=== PATIENT | female | born 1995 | race Caucasian/White ===

== ENCOUNTER 2016-02-16 13:41 | Emergency (ER) | payer OTHER ==
[~2016-02-16] VITALS: Ht 160 cm; Wt 103.9 kg
[2016-02-16 13:48] VITALS: TEMP 36.7; Ht 160 cm; Wt 103.9 kg
[2016-02-16] MEDS ORDERED: BUSP15TA70 PO (14:48)
[2016-02-16] MEDS ORDERED: FLUO40CA8 PO (14:48)
[2016-02-16] MEDS ORDERED: BCPILLS PO (14:48)
[2016-02-16] MEDS ORDERED: ONDANSETRON INJ 2 MG/ML 2 ML VIAL IV STA (14:56)
[2016-02-16 15:18] LABS: BASO % 0.3 %; BASO ABS # 0.03 K/uL (0-0.2); COMPLETE YES; EOS % 1.1 %; HEMATOCRIT 43.3 % (37-47); IG% 0.2 %; LYMPH % 28.2 %; LYMPH ABS # 2.52 K/uL (1.2-3.4); MEAN CELL VOLUME 84.7 fL (80-100); MEAN CORPUSCULAR HEMOGLOBIN 29.9 pg (25-34); MEAN CORPUSCULAR HGB CONC 35.3 g/dl (32-36); MEAN PLATELET VOLUME 11.6 fL (7.4-10.4); MONO % 6.5 %; NEUT % 63.7 %; PLATELET COUNT 244 K/uL (130-400); RED BLOOD COUNT 5.11 M/uL (4.2-5.4); WHITE BLOOD COUNT 8.93 K/uL (4.8-10.8)
[2016-02-16 15:32] LABS: BUN/CREATININE RATIO 3.9 (10-20); CALCIUM 9.3 mg/dl (8.5-10.1); CREATININE 0.93 mg/dl (0.60-1.20); POTASSIUM 3.5 mmol/L (3.5-5.1)
[2016-02-16] MEDS ORDERED: SODIUM CHLORIDE 0.9% 1000ML 1,000 ML IV STA (16:02)
--- NOTE | 2016-02-16 16:12 | DIAGNOSTIC IMAGING REPORT ---
Right upper quadrant ultrasound GALLBLADDER-ABD LIMITED CLINICAL HISTORY: rug abd pain. Nausea. TECHNIQUE: Ultrasound COMPARISON STUDY: 04/10/2014 FINDINGS: Small polyp combined with a trace amount of sludge and or debris in the region of the gallbladder neck. Gallbladder wall is slightly prominent at 3.5 mm. No pericholecystic fluid. Bile duct 3 mm. Liver is uniform. Right kidney is negative for hydronephrosis. IMPRESSION: Small amount of sludge/debris in the region of the gallbladder neck. Slight thickening gallbladder wall. Normal caliber bile ducts. Electronically signed by: Chaitanya Martinez M.D. 02/16/2016 4:10 PM
[2016-02-16] MEDS ORDERED: OXYC1TAB3 PO (16:54)
--- NOTE | 2016-02-16 16:55 | Pre-Operative Consultation ---
History General Date of Service: Feb 16, 2016. Stated Complaint: abdominal pain and diarrhea HPI HPI: The patient is a 20 year old female being seen at the request of Dr. Panda for diarrhea and abdominal pain. She started about 2 wks ago with diarrhea. This would happen on a daily basis, more often after eating but also at times she was not eating. Up to over 10 stools of explosive nature daily. No relation to type of food eaten. Initially when this started, she had nausea and vomiting for a few days. About 1 wk ago, developed abdominal pain, constant, sharp, worse in mid abdomen and right side, up to 8/10 in intensity at times, no radiation to back or shoulder. In the past, she has been worked up for gallbladder disease but this has typically been normal. She has reflux disease also which feels worse recently. Pain currently 5/10. Decreased PO intake. She is here in the ER because things have just been going on too long. Initially went to urgent care but told they could not do any testing so sent here. Does not feel any worse today than she has felt in the last week. She is able to keep down PO intake. Historian: patient Procedure Urgency: Elective Risk Assessment Major Risk Factors: no known hx of decompensated CHF, no known hx of recent NH , no known hx of severe valvular disease, no known hx of unstable or severe angina Pre-Op Conditions: no known hx of COPD, no known hx of arrhythmia, no known hx of asthma, no known hx of cerebrovascular disease, no known hx of compensated CHF, no known hx of diabetes, no known hx of elevated BNP, no known hx of family h/o anesthesia problems, no known hx of h/o anesthesia problems, no known hx of h/o orthostatic intolerance, no known hx of history of NH, no known hx of implanted defibrillator, no known hx of liver disease, no known hx of other, no known hx of pacemaker, no known hx of problems w/ neck or jaw, no known hx of recent PCI, no known hx of renal insufficiency, no known hx of seizure disorder, no known hx of stable angina, no known hx of thyroid disease, no known hx of valvular heart disease Daily beta sidney use?: No Medical & Surgical History Past Medical History: no pertinent history Past Surgical History: no surgical history Allergies Allergies: Coded Allergies: Penicillins (Verified Allergy, Unknown, ?, 02/16/16) Medications Current Inpatient Medications Current Inpatient Medications Medications (Trade) Dose Ordered Sig/Yadi Route Start Time Stop Time Status Last Admin Dose Admin Sodium Chloride (Nss 1000ml) 1,000 ml @ 999 mls/hr Q1H1M STAT IV 02/16/16 16:02 02/16/16 17:02 02/16/16 16:11 999 MLS/HR Review of Systems Review of Systems Constitutional: denies no symptoms reported Eyes: denies: no symptoms ENT: denies: no symptoms reported Cardiovascular: denies: no symptoms reported Respiratory: denies: no symptoms reported Gastrointestinal: see HPI Genitourinary - Female: denies: no symptoms Musculoskeletal: no symptoms reported Integumentary: no symptoms reported Neurologic: reports: no symptoms Psychiatric: reports: no symptoms Endocrine: no symptoms Hematologic / Lymphatic: no symptoms Allergic / Immunologic: no symptoms Physical Exam Physical Exam General Appearance: + WD/WN, No distress Ears, Nose, Throat: + normal ENT inspection Neck: No abnormal inspection, No tracheal deviation Respiratory: No abnormal breath sounds, No accessory muscle use, No chest tenderness Cardiovascular: No abnormal peripheral pulse, No edema Abdomen: No abnormal bowel sounds, No distension, No hernia, No tenderness Extremities: No edema Neurologic/Psychiatric: No abnormal general medical practitioner II-XII, No abnormal gait Skin Characteristics: No abnormal color, No abnormal temperature Diagnostics Labs Labs Results Past 24 Hours Test 02/16/16 14:50 Range/Units White Blood Count 8.93 4.8-10.8 K/uL Red Blood Count 5.11 4.2-5.4 M/uL Hemoglobin 15.3 12.0-16.0 g/dL Hematocrit 43.3 37-47 % Mean Corpuscular Volume 84.7 80-100 fL Mean Corpuscular Hemoglobin 29.9 25-34 pg Mean Corpuscular Hemoglobin Concent 35.3 32-36 g/dl Platelet Count 244 130-400 K/uL Mean Platelet Volume 11.6 7.4-10.4 fL Neutrophils (%) (Auto) 63.7 % Lymphocytes (%) (Auto) 28.2 % Monocytes (%) (Auto) 6.5 % Eosinophils (%) (Auto) 1.1 % Basophils (%) (Auto) 0.3 % Neutrophils # (Auto) 5.68 1.4-6.5 K/uL Lymphocytes # (Auto) 2.52 1.2-3.4 K/uL Monocytes # (Auto) 0.58 0.11-0.59 K/uL Eosinophils # (Auto) 0.10 0-0.5 K/uL Basophils # (Auto) 0.03 0-0.2 K/uL RDW Standard Deviation 41.1 36.4-46.3 fL RDW Coefficient of Variation 13.3 11.5-14.5 % Immature Granulocyte % (Auto) 0.2 % Immature Granulocyte # (Auto) 0.02 0.00-0.02 K/uL Sodium Level 141 136-145 mmol/L Potassium Level 3.5 3.5-5.1 mmol/L Chloride Level 108 98-107 mmol/L Carbon Dioxide Level 20 21-32 mmol/L Anion Gap 13.0 3-11 mmol/L Blood Urea Nitrogen 4 7-18 mg/dl Creatinine 0.93 0.60-1.20 mg/dl Est Creatinine Clear Calc Drug Dose 111.2 ml/min Estimated GFR () 102.5 Estimated GFR (Non- 88.5 BUN/Creatinine Ratio 3.9 10-20 Random Glucose 82 70-99 mg/dl Calcium Level 9.3 8.5-10.1 mg/dl Total Bilirubin 0.5 0.2-1 mg/dl Direct Bilirubin 0.2 0-0.2 mg/dl Aspartate Amino Transf (AST/SGOT) 61 15-37 U/L Alanine Aminotransferase (ALT/SGPT) 104 12-78 U/L Alkaline Phosphatase 100 45-117 U/L Total Protein 8.5 6.4-8.2 gm/dl Albumin 4.0 3.4-5.0 gm/dl Lipase 185 73-393 U/L Microbiology Results 02/16/16 Shiga Toxin Test, Received Pending 02/16/16 Stool Culture, Received Pending 02/16/16 C.difficile Toxin B Gene (PCR) - Final, Complete No C. difficile toxin B gene detected Lab Interpretation Lab Interpretation: labs were reviewed Diagnostic Radiology Diagnostic Radiology RUQ US with possible minimal sludge in gallbladder neck. Impression Assessment and Plan Assessment and Plan 20 yr old woman with diarrhea, abdominal pain. Does not need admission to hospital as this should be able to be evaluated as an oupt. I would recommend a colonoscopy first to rule out colitis as the predominance of diarrhea in her symptoms is unusual for gallbladder disease. If this is negative, she could be considered for an elective lap cholecystectomy but does carry a significant chance (up to 30%) of recurrent symptoms or worsening of her diarrhea from the surgery due to the minimal gallbladder findings. This was discussed with her - she feels OK to be discharged with outpt f/u scheduled.
[2016-02-16 17:10] VITALS: BP 138/77; PULSE 97; O2SAT 100
[2016-02-16 17:43] LABS: URINE APPEARANCE CLOUDY (CLEAR); URINE BILIRUBIN NEG (NEG); URINE COLOR DK YELLOW; URINE EPITHELIAL CELL AUTO >30 /lpf (0-5); URINE NITRITE NEG (NEG); URINE SPECIFIC GRAVITY 1.013 (1.000-1.030); UROBILINOGEN NEG (NEG); ZZUR CULT IF INDIC CLEAN CATCH YES
[2016-02-16 17:48] LABS: MANUAL MICROSCOPIC REQUIRED? NO; REVIEW REQ? YES
[2016-02-16 17:56] LABS: URINE PATH CASTS 1-5 GRANULAR CASTS /lpf (0)
--- NOTE | 2016-02-16 18:01 | EMERGENCY ROOM VISIT NOTE ---
History Report prepared by Rosanna: Sonya Jackson Under the Supervision of: Dr. Greg Panda D.O. First contact with patient: 14:37 Chief Complaint: ABDOMINAL PAIN Stated Complaint: DIARRHEA X 2 WKS, ABD. PAIN, RT SIDE/ALL OVER Nursing Triage Summary: Triage note: Pt reports she has had diarrhea x 2 weeks and abd pain x 1 week. Pt reports nausea. History of Present Illness The patient is a 20 year old female who presents to the Emergency Room with complaints of constant right upper quadrant abdominal pain that started one week ago. The pain is worse with eating and movement but relieved with lying down. She is experiencing nausea in addition to the pain but she denies vomiting. The patient is also experiencing diarrhea that started two weeks ago. She experiences approximately 10 episodes of diarrhea a day. She denies hematochezia. The patient denies recent travel, drinking from streams, recent sick contacts, and recent contact with healthcare professionals. She denies pain or burning with urination along with abnormal vaginal bleeding or discharge. Her last normal menstrual period was one month ago and she denies any chance of . The patient denies any previous abdominal surgeries. No recent antibiotics. No fevers greater than 100.4. Source of History: patient Onset: one week ago Position: abdomen (RUQ) Timing: constant Modifying Factors (Worsening): eating, movement Modifying Factors (Relieving): other (lying down) Associated Symptoms: + diarrhea, + nausea, No hematochezia, No urinary symptoms Note: no abnormal vaginal bleeding or discharge Review of Systems See HPI for pertinent positives & negatives. A total of 10 systems reviewed and were otherwise negative. Past Medical & Surgical Surgical Problems: (1) No pertinent past surgical history Family History No pertinent family history Social History Marital Status: single Housing Status: lives with family Current/Historical Medications Scheduled Control Pills ( Control Pills), 1 TAB PO DAILY Buspirone Hcl (Buspar), Unknown Dose PO HS Fluoxetine (Prozac), 40 MG PO HS Scheduled PRN Oxycodone Immediate Rel Tab (Roxicodone Ir), 5 MG PO Q6H PRN for Pain Allergies Coded Allergies: Penicillins (Verified Allergy, Unknown, ?, 02/16/16) Physical Exam Vital Signs Date Time Temp Pulse Resp B/P Pulse Ox O2 Delivery O2 Flow Rate FiO2 02/16/16 17:10 97 16 138/77 100 02/16/16 15:25 93 16 111/69 98 Room Air 02/16/16 13:48 36.7 100 18 98/71 99 Room Air Physical Exam GENERAL: alert, sitting up in bed, well appearing, well nourished, no distress, non-toxic EYE EXAM: normal conjunctiva OROPHARYNX: no exudate, no erythema, lips, buccal mucosa, and tongue normal and mucous membranes are moist NECK: supple, no nuchal rigidity, no adenopathy, non-tender LUNGS: Clear to auscultation. Normal chest wall mechanics HEART: no murmurs, S1 normal and S2 normal ABDOMEN: abdomen soft, minimal tenderness in right upper quadrant, normo-active bowel sounds, no masses, no rebound or guarding. BACK: Back is symmetrical on inspection and there is no deformity, no midline tenderness, no CVA tenderness. SKIN: no rashes and no bruising UPPER EXTREMITIES: upper extremities are grossly normal. LOWER EXTREMITIES: No pitting edema. NEURO EXAM: Normal sensorium, cranial nerves II-XII grossly intact, normal speech, no gross weakness of arms, no gross weakness of legs. Medical Decision & Procedures ER Provider Diagnostic Interpretation: US results have been interpreted by the radiologist and reviewed by me. Right upper quadrant ultrasound GALLBLADDER-ABD LIMITED CLINICAL HISTORY: rug abd pain. Nausea. TECHNIQUE: Ultrasound COMPARISON STUDY: 04/10/2014 FINDINGS: Small polyp combined with a trace amount of sludge and or debris in the region of the gallbladder neck. Gallbladder wall is slightly prominent at 3.5 mm. No pericholecystic fluid. Bile duct 3 mm. Liver is uniform. Right kidney is negative for hydronephrosis. IMPRESSION: Small amount of sludge/debris in the region of the gallbladder neck. Slight thickening gallbladder wall. Normal caliber bile ducts. Electronically signed by: Chaitanya Martinez M.D. 02/16/2016 4:10 PM Laboratory Results 02/16/16 14:50 Red Blood Count 5.11, Mean Corpuscular Volume 84.7, Mean Corpuscular Hemoglobin 29.9, Mean Corpuscular Hemoglobin Concent 35.3, Mean Platelet Volume 11.6, Neutrophils (%) (Auto) 63.7, Lymphocytes (%) (Auto) 28.2, Monocytes (%) (Auto) 6.5, Eosinophils (%) (Auto) 1.1, Basophils (%) (Auto) 0.3, Neutrophils # (Auto) 5.68, Lymphocytes # (Auto) 2.52, Monocytes # (Auto) 0.58, Eosinophils # (Auto) 0.10, Basophils # (Auto) 0.03 02/16/16 14:50 Test 02/16/16 14:50 02/16/16 16:55 White Blood Count 8.93 K/uL (4.8-10.8) Red Blood Count 5.11 M/uL (4.2-5.4) Hemoglobin 15.3 g/dL (12.0-16.0) Hematocrit 43.3 % (37-47) Mean Corpuscular Volume 84.7 fL (80-100) Mean Corpuscular Hemoglobin 29.9 pg (25-34) Mean Corpuscular Hemoglobin Concent 35.3 g/dl (32-36) Platelet Count 244 K/uL (130-400) Mean Platelet Volume 11.6 fL (7.4-10.4) Neutrophils (%) (Auto) 63.7 % Lymphocytes (%) (Auto) 28.2 % Monocytes (%) (Auto) 6.5 % Eosinophils (%) (Auto) 1.1 % Basophils (%) (Auto) 0.3 % Neutrophils # (Auto) 5.68 K/uL (1.4-6.5) Lymphocytes # (Auto) 2.52 K/uL (1.2-3.4) Monocytes # (Auto) 0.58 K/uL (0.11-0.59) Eosinophils # (Auto) 0.10 K/uL (0-0.5) Basophils # (Auto) 0.03 K/uL (0-0.2) RDW Standard Deviation 41.1 fL (36.4-46.3) RDW Coefficient of Variation 13.3 % (11.5-14.5) Immature Granulocyte % (Auto) 0.2 % Immature Granulocyte # (Auto) 0.02 K/uL (0.00-0.02) Anion Gap 13.0 mmol/L (3-11) Est Creatinine Clear Calc Drug Dose 111.2 ml/min Estimated GFR () 102.5 Estimated GFR (Non- 88.5 BUN/Creatinine Ratio 3.9 (10-20) Calcium Level 9.3 mg/dl (8.5-10.1) Total Bilirubin 0.5 mg/dl (0.2-1) Direct Bilirubin 0.2 mg/dl (0-0.2) Aspartate Amino Transf (AST/SGOT) 61 U/L (15-37) Alanine Aminotransferase (ALT/SGPT) 104 U/L (12-78) Alkaline Phosphatase 100 U/L (45-117) Total Protein 8.5 gm/dl (6.4-8.2) Albumin 4.0 gm/dl (3.4-5.0) Lipase 185 U/L (73-393) Urine Color DK YELLOW Urine Appearance CLOUDY (CLEAR) Urine pH 6.0 (4.5-7.5) Urine Specific Roberts 1.013 (1.000-1.030) Urine Protein NEG (NEG) Urine Glucose (UA) NEG (NEG) Urine Ketones 1+ (NEG) Urine Occult Blood NEG (NEG) Urine Nitrite NEG (NEG) Urine Bilirubin NEG (NEG) Urine Urobilinogen NEG (NEG) Urine Leukocyte Esterase MODERATE (NEG) Urine WBC (Auto) >30 /hpf (0-5) Urine RBC (Auto) 5-10 /hpf (0-4) Urine Hyaline Casts (Auto) 5-10 /lpf (0-5) Urine Epithelial Cells (Auto) >30 /lpf (0-5) Urine Bacteria (Auto) 2+ (NEG) Urine Renal Epithelial Cells 0-5 /lpf (0-5) Urine Pathogenic Casts 1-5 GRANULAR CASTS /lpf (0) Urine Test NEG (NEG) Laboratory results per my review. Medications Administered Medications (Trade) Dose Ordered Sig/Yadi Route Start Time Stop Time Status Last Admin Dose Admin Ondansetron HCl 4 mg 4 mg NOW STAT IV 02/16/16 14:56 02/16/16 14:57 DC 02/16/16 15:23 4 MG Sodium Chloride (Nss 1000ml) 1,000 ml @ 999 mls/hr Q1H1M STAT IV 02/16/16 16:02 02/16/16 17:02 DC 02/16/16 16:11 999 MLS/HR ED Course ED COURSE: Vital signs were reviewed and showed tachycardia and hypotension. The patients medical record was reviewed The above diagnostic studies were performed and reviewed. ED treatments and interventions as stated above. 1438: The patient was evaluated in room C5. A complete history and physical examination was performed. 1456: Ordered Zofran 4 mg IV 1550: I went to reassess the patient but she was at ultrasound. 1602: Ordered Sodium Chloride 1000 ml @ 999 mls/hr IV 1625: I reassessed and updated the patient. 1626: I reviewed the patient's case with Dr. Penny - General Surgery. She recommends trying to obtain a HIDA scan for the patient. She is going to come in and evaluate the patient. 1628: I called over to [facility] to see if they can perform a HIDA scan today. They said that they could not do one today because everyone has left already. 1643: Dr. Penny evaluated the patient. She recommended having her follow-up as an outpatient. 1655: Upon reevaluation, the patient is doing well. I discussed my findings with the patient and she understands and agrees with the treatment plan. Based on the patients age, coexisting illnesses, exam and lab findings the decision to treat as an outpatient was made. The patient remained stable while under my care. The patient appeared well at the time of discharge. Medical Decision Differential diagnoses includes but is not limited to gastritis, peptic ulcer disease, GERD, gallbladder disease, pancreatitis, small bowel obstruction, acute coronary syndrome, pericarditis, ischemic bowel, irritable bowel disease, irritable bowel syndrome, appendicitis, diverticulitis, malignancy, hernia, urinary tract infection, torsion, /ectopic , perforation, trauma, infectious. Patient is a 20-year-old female who presents the ER for persistent diarrhea for the past 10 days. She has been going to the bathroom about 10 times a day. No antibiotics are association with healthcare providers. No recent travel. No drinking from stream. No blood in her stool. Abdominal exam is completely benign with exception of mild tenderness in the right upper quadrant which has also been present for the past 7 days. She has been working this up as an outpatient. It is worse with eating. No fevers. Labs show no significant leukocytosis or anemia. BMP shows a CO2 of 20 which I favor secondary to her persistent diarrhea. AST and ALTs slightly elevated at 61 and 104. Ultrasound shows slight gallbladder wall thickening and some sludge in the next the call bladder but normal ducts. UA was contaminated. Urine was negative. urine dip had plus ketones negative nitrates leukocytes and whites. Patient was evaluated by general surgery at bedside. I consulted them due to the thickening of the gallbladder wall along with sludge in the neck of the gallbladder and elevation in her LFTs. They recommended following up as an outpatient and they'll set up follow-up for GI as well. C. difficile was negative. Stool culture still pending. Discussed with Pt concerning signs and symptoms to watch out for. Pt was instructed to follow up with their PCP and discussed with the patient their option to return to the ED at anytime for persistent or worsening symptoms. The appropriate anticipatory guidance and out- patient management, including indications for return to the emergency department , were explained at length to the patient and understood. Consults Time Called: 1623 Consulting Physician: Dr. Penny - General Surgery Returned Call: [phone] I reviewed the patient's case with Dr. Zohaib Rene General Surgery. She recommends trying to obtain a HIDA scan for the patient. She is going to come in and evaluate the patient. Impression Primary Impression: RUQ abdominal pain Additional Impressions: Transaminitis, Diarrhea Scribe Attestation The scribe's documentation has been prepared under my direction and personally reviewed by me in its entirety. I confirm that the note above accurately reflects all work, treatment, procedures, and medical decision making performed by me. Departure Information Dispostion Home / Self-Care Prescriptions Oxycodone Immediate Rel Tab (ROXICODONE IR) 5 Mg Tab 5 MG PO Q6H Y for Pain, #10 TAB Prov: Greg Panda, DO 02/16/16 Referrals No Doctor, Assigned (PCP) Forms HOME CARE DOCUMENTATION FORM, IMPORTANT VISIT INFORMATION, My [facility] Patient Instructions A Signature Page, Gallstones Tx, Vomit Diarrhea Self Care Additional Instructions Please follow up with your primary care doctor with in the next 24 hours. Any worsening of your symptoms, please return to the ED immediately. This includes fevers greater than 100.4, worsening pain, persistent nausea vomiting, bloody stool, or any other concerning signs or symptoms from your standpoint. Please follow-up with general surgery within the next 48 hours. You were given medications during this visit that will inhibit your ability to drive, operate machinery and work. Please do NOT drive, operate machinery or work for the next 12hrs. You were also given a prescription for a narcotic/ OxyIR. While taking this medication you should also not drive, operate machinery and or work.
--- NOTE | 2016-02-18 18:38 | Pharmacy Progress Note ---
ED Pharmacist Culture FollowUp Date of Service: Feb 18, 2016. Called patient regarding urine culture. Patient confirmed that she still does not have any urinary symptoms. Counseled to see PCP if she develops any. No antibiotics required at this time. Case discussed with Dr. Panda.
== END 2016-02-16 17:11 | disposition home or self-care (01) ==
LOC: C.EDB 13:44 → C.EDC 17:11
DX: R10.11 Right upper quadrant pain (principal); R19.7 Diarrhea, unspecified; Z79.3 Long term (current) use of hormonal contraceptives; Z79.899 Other long term (current) drug therapy; R74.0 Nonspecific elevation of levels of transaminase and lactic acid dehydrogenase [LDH]

== ENCOUNTER 2016-03-10 10:37 | Emergency (ER) | payer OTHER ==
[~2016-03-10] VITALS: Ht 160 cm; Wt 103.1 kg
[~2016-03-10 10:37] MED LIST: BCPILLS PO; BUSP15TA70 PO; FLUO40CA8 PO; OXYC1TAB3 PO
[2016-03-10 10:53] VITALS: TEMP 36.8; Ht 160 cm; Wt 103.1 kg
--- NOTE | 2016-03-10 11:17 | EMERGENCY ROOM VISIT NOTE ---
History Report prepared by Rosanna: Natty Babb Under the Supervision of: Dr. Cuba Cole D.O. First contact with patient: 11:01 Chief Complaint: ABDOMINAL PAIN Stated Complaint: ABD. PAIN, V,N Nursing Triage Summary: Pt c/o right upper abdominal pain that started Sunday, n/v/d, pain now goes across upper abd from right to left. Pain also goes into upper left chest and shoulder. Hx of the same pain when seen here Feb 15. History of Present Illness The patient is a 20 year old female who presents to the Emergency Room with complaints of persistent right upper quadrant abdominal pain that began Sunday. She currently rates her discomfort as an 8/10 in severity. The patient states that a few weeks ago she was evaluated in the emergency department for similar pain. She states that she had an ultrasound done of her gallbladder and found to have sludge in her gallbladder. The patient notes that she was referred to Dr. Penny, General Surgery to discuss surgery options. She states that Dr. Penny let the decision up to her as to whether or not she would have her gallbladder removed. The patient states that Sunday she started with the abdominal pain, but notes that now it radiates from her right upper quadrant to her left upper quadrant and into her back. She additionally associates nausea, vomiting, and diarrhea, and states that the nausea is a new symptom as well. The patient states that she has had a pain in her left anterior shoulder pain, but denies any pain in her shoulder blades. The patient states that her last menstrual cycle was 1 week ago and states that she is on control and Prozac. She denies any previous abdominal surgeries. The patient states that her last food intake was last evening. Source of History: patient Onset: Sunday Position: abdomen (RUQ) Symptom Intensity: 8/10 Timing: other (persistent) Associated Symptoms: + diarrhea, + nausea, + vomiting Note: Associated Symptoms: left anterior shoulder pain Review of Systems See above for pertinent positives & negatives. A total of 10 systems reviewed and were otherwise negative. Past Medical & Surgical Surgical Problems: (1) No pertinent past surgical history Family History No pertinent family history Social History Smoking Status: Never Smoker Marital Status: single Housing Status: lives with family Occupation Status: student Current/Historical Medications Scheduled Control Pills ( Control Pills), 1 TAB PO DAILY Buspirone Hcl (Buspar), Unknown Dose PO HS Fluoxetine (Prozac), 40 MG PO HS Scheduled PRN Hydrocodon/Acetaminophen 5MG/300MG (Vicodin (5MG/300MG)), 1-2 TAB PO Q6H PRN for Pain Allergies Coded Allergies: Cetirizine (Unverified Allergy, Unknown, "OUT OF IT". , 03/10/16) Penicillins (Verified Allergy, Unknown, ?, 03/10/16) Physical Exam Vital Signs Date Time Temp Pulse Resp B/P Pulse Ox O2 Delivery O2 Flow Rate FiO2 03/10/16 15:26 87 16 116/67 96 Room Air 03/10/16 14:13 85 18 127/74 96 Room Air 03/10/16 13:22 89 03/10/16 12:18 87 16 114/68 96 Room Air 03/10/16 11:37 97 03/10/16 10:53 36.8 103 18 116/85 97 Room Air Physical Exam GENERAL: Patient is well appearing and in no acute distress. HEENT: No acute trauma, normocephalic atraumatic, mucous membranes moist, no nasal congestion, no scleral icterus. NECK: No stridor, no adenopathy, no meningismus, trachea is midline. LUNGS: No dyspnea. Clear to auscultation and equal bilaterally. No wheeze, no rhonchi. HEART: Regular rate and rhythm. No murmurs, rubs, gallops appreciated. ABDOMEN: Tender in the right upper quadrant, positive Chase's sign. Soft, bowel sounds positive, no masses appreciated, no peritonitis. BACK: No midline tenderness, no CVA tenderness EXTREMITIES: Normal motion all extremities, no cyanosis, no edema. NEUROLOGIC: Alert and oriented, no acute motor or sensory deficits, no focal weakness, cranial nerves grossly intact. SKIN: No rash, no jaundice, no diaphoresis. Medical Decision & Procedures ER Provider Diagnostic Interpretation: X ray results and stated below per my interpretation and radiologist interpretation. Other radiology results and stated below per my review and radiologist interpretation: Ultrasound from 02/16/16 Right upper quadrant ultrasound GALLBLADDER-ABD LIMITED CLINICAL HISTORY: rug abd pain. Nausea. TECHNIQUE: Ultrasound COMPARISON STUDY: 04/10/2014 FINDINGS: Small polyp combined with a trace amount of sludge and or debris in the region of the gallbladder neck. Gallbladder wall is slightly prominent at 3.5 mm. No pericholecystic fluid. Bile duct 3 mm. Liver is uniform. Right kidney is negative for hydronephrosis. IMPRESSION: Small amount of sludge/debris in the region of the gallbladder neck. Slight thickening gallbladder wall. Normal caliber bile ducts. Electronically signed by: Chaitanya Martinez M.D. 02/16/2016 4:10 PM The status of this report is Signed. Draft = Not yet reviewed or approved by Radiologist. Signed = Reviewed and approved by Radiologist. ABDOMINAL ULTRASOUND, RIGHT UPPER QUADRANT HISTORY: Abdominal pain.. COMPARISON: CT of the abdomen and pelvis May 06, 2014 and right upper quadrant ultrasound February 16, 2016. FINDINGS: This study is compromised by suboptimal penetration. Liver is sonographically normal. There is no biliary ductal dilatation. There is no gallbladder wall thickening. A 4 mm nonmobile abnormality within the gallbladder may reflect a polyp or less likely a stone. The pancreatic body is normal. The head and tail are partially obscured by overlying bowel gas. There is no right hydronephrosis. IMPRESSION: 1. 4 mm nonmobile abnormality within the gallbladder which could reflect a small polyp or less likely calculus. No evidence of acute cholecystitis. 2. No biliary ductal dilatation. Electronically signed by: Waldemar Bauman M.D. 03/10/2016 1:05 PM Dictated Date/Time: 03/10/2016 1:03 PM CHEST 2 VIEWS ROUTINE CLINICAL HISTORY: Abdominal pain, nausea and vomiting. COMPARISON STUDY: No previous studies for comparison. FINDINGS: Lung volumes are normal. There is no pneumothorax or pleural effusion. There is a pectus excavatum deformity with obscuration of the right heart border. Cardiac size is normal. Mediastinal contours are normal. There is no evidence of pulmonary edema. There is no lucency under the hemidiaphragms to suggest pneumoperitoneum. IMPRESSION: No acute cardiopulmonary findings. Electronically signed by: Waldemar Bauman M.D. 03/10/2016 12:11 PM Dictated Date/Time: 03/10/2016 12:[address] ANGIOGRAM OF THE CHEST CLINICAL HISTORY: Abnormal EKG. Nausea. Elevated d-dimer. COMPARISON STUDY: Chest radiograph dated 03/10/2016. TECHNIQUE: Following the IV administration of 92 cc of Optiray 320, CT angiogram of the chest was performed from the upper abdomen to the thoracic inlet utilizing the pulmonary embolus protocol. Images are reviewed in the axial, sagittal, and coronal planes. 3-D MIPS images are created and assessed. IV contrast was administered without complication. CT DOSE: 645.70 mGy.cm FINDINGS: Thyroid: Imaged portions of the thyroid gland are normal in size and attenuation. Thoracic aorta: The thoracic aorta is normal in caliber and demonstrates 4-vessel variant arch anatomy. No dissection is seen. Pulmonary vasculature: The pulmonary trunk is normal in caliber. There are no filling defects identified in main, lobar, or segmental pulmonary branches to suggest pulmonary embolus. Heart: The heart is normal in size and configuration, and without pericardial effusion. Lungs and pleural spaces: The lungs and pleural spaces are clear. The trachea and central airways are patent. Mediastinum: There is no mediastinal lymphadenopathy. Fifi: Clear. Axillae: There is no axillary lymphadenopathy. Upper abdomen: The spleen is mildly enlarged, measuring 13.3 cm in length. Hepatic steatosis is suspected. Partially visualized upper abdominal viscera is otherwise within normal limits. Skeletal structures: No lytic or blastic bony lesions are seen. A mild pectus deformity is noted. IMPRESSION: 1. There is no evidence of pulmonary embolus in the main, lobar, or segmental pulmonary arteries. 2. The lungs are clear. 3. Suspect hepatic steatosis. Mild splenomegaly. Electronically signed by: Jin Carranza M.D. 03/10/2016 2:47 PM Dictated Date/Time: 03/10/2016 2:42 PM Laboratory Results 03/10/16 11:05 Red Blood Count 5.05, Mean Corpuscular Volume 85.1, Mean Corpuscular Hemoglobin 29.9, Mean Corpuscular Hemoglobin Concent 35.1, Mean Platelet Volume 11.2, Neutrophils (%) (Auto) 47.0, Lymphocytes (%) (Auto) 41.5, Monocytes (%) (Auto) 9.7, Eosinophils (%) (Auto) 1.2, Basophils (%) (Auto) 0.2, Neutrophils # (Auto) 2.29, Lymphocytes # (Auto) 2.02, Monocytes # (Auto) 0.47, Eosinophils # (Auto) 0.06, Basophils # (Auto) 0.01 03/10/16 11:05 Test 03/10/16 11:05 03/10/16 15:05 White Blood Count 4.87 K/uL (4.8-10.8) Red Blood Count 5.05 M/uL (4.2-5.4) Hemoglobin 15.1 g/dL (12.0-16.0) Hematocrit 43.0 % (37-47) Mean Corpuscular Volume 85.1 fL (80-100) Mean Corpuscular Hemoglobin 29.9 pg (25-34) Mean Corpuscular Hemoglobin Concent 35.1 g/dl (32-36) Platelet Count 219 K/uL (130-400) Mean Platelet Volume 11.2 fL (7.4-10.4) Neutrophils (%) (Auto) 47.0 % Lymphocytes (%) (Auto) 41.5 % Monocytes (%) (Auto) 9.7 % Eosinophils (%) (Auto) 1.2 % Basophils (%) (Auto) 0.2 % Neutrophils # (Auto) 2.29 K/uL (1.4-6.5) Lymphocytes # (Auto) 2.02 K/uL (1.2-3.4) Monocytes # (Auto) 0.47 K/uL (0.11-0.59) Eosinophils # (Auto) 0.06 K/uL (0-0.5) Basophils # (Auto) 0.01 K/uL (0-0.2) RDW Standard Deviation 41.0 fL (36.4-46.3) RDW Coefficient of Variation 13.3 % (11.5-14.5) Immature Granulocyte % (Auto) 0.4 % Immature Granulocyte # (Auto) 0.02 K/uL (0.00-0.02) D-Dimer 580 ug/L FEU (0-500) Anion Gap 11.0 mmol/L (3-11) Est Creatinine Clear Calc Drug Dose 113.1 ml/min Estimated GFR () 105.3 Estimated GFR (Non- 90.8 BUN/Creatinine Ratio 7.7 (10-20) Calcium Level 9.3 mg/dl (8.5-10.1) Total Bilirubin 0.5 mg/dl (0.2-1) Direct Bilirubin 0.1 mg/dl (0-0.2) Aspartate Amino Transf (AST/SGOT) 19 U/L (15-37) Alanine Aminotransferase (ALT/SGPT) 27 U/L (12-78) Alkaline Phosphatase 79 U/L (45-117) Total Protein 8.4 gm/dl (6.4-8.2) Albumin 3.9 gm/dl (3.4-5.0) Lipase 150 U/L (73-393) Urine Color YELLOW Urine Appearance CLEAR (CLEAR) Urine pH 5.5 (4.5-7.5) Urine Specific [place] > 1.045 (1.000-1.030) Urine Protein NEG (NEG) Urine Glucose (UA) NEG (NEG) Urine Ketones 2+ (NEG) Urine Occult Blood 1+ (NEG) Urine Nitrite NEG (NEG) Urine Bilirubin NEG (NEG) Urine Urobilinogen NEG (NEG) Urine Leukocyte Esterase NEG (NEG) Urine Test NEG (NEG) Laboratory results as reviewed by me. Medications Administered Medications (Trade) Dose Ordered Sig/Yadi Route Start Time Stop Time Status Last Admin Dose Admin Ondansetron HCl (Zofran Inj) 4 mg NOW STAT IV 03/10/16 11:23 03/10/16 11:38 DC 03/10/16 11:42 4 MG Hydromorphone HCl (Dilaudid Inj) 0.5 mg Q2H PRN IV 03/10/16 11:30 03/24/16 11:29 03/10/16 11:43 0.5 MG ECG Indication: abdominal pain Rate (beats per minute): 87 Rhythm: normal sinus Findings: other (normal axis, normal intervals, abnormal EKG) Comparison ECG Date: no prior available ED Course 1108: The patient was evaluated in room B2. A complete history and physical exam was performed. 1123: Ordered Zofran Inj 4 mg IV. 1130: Ordered Dilaudid Inj 0.5 mg IV. 1355: I discussed the patients case with Dr. Rizzo, General Surgery. She is going to have a CT chest, will follow up as an outpatient. 1515: The patient was reevaluated and is resting comfortably. I discussed all the exam findings with her and I discussed the treatment plan. She verbalized complete understanding and agreement. She is ready to go home. Medical Decision Differential diagnosis: Etiologies such as appendicitis, diverticulitis, PUD, biliary pathology, UTI, pancreatitis, obstruction, mesenteric ischemia, aortic pathology, infections, inflammatory bowel disease, renal colic, as well as others were entertained. Patient is a 20-year-old female with a history of symptomatic cholelithiasis who presents with a recurrent episode today. She has seen Dr. Penny in the past and is in the workup for a elective cholecystectomy. Patient reports that she had a HIDA scan in 2014. Today we have been able to get her pain under control, there is no evidence of ductal dilatation, she has no elevation in her LFTs, there is a normal ultrasound. I discussed the case with Dr. Foreign Felton he will see her in the office next week and does not need a repeat HIDA scan at this point. Patient will be discharged home in improved stable condition. Patient did have an elevated d-dimer, she subsequently she had a CT scan of the chest which was unremarkable for PE. Consults Time Called: 1350 Consulting Physician: Dr. Rizzo, General Surgery Returned Call: 2022 I discussed the patients case with Dr. Rizzo, General Surgery. She is going to have a CT chest, will follow up as an outpatient. Impression Primary Impression: Cholelithiasis Additional Impressions: RUQ abdominal pain Abnormal EKG Scribe Attestation The scribe's documentation has been prepared under my direction and personally reviewed by me in its entirety. I confirm that the note above accurately reflects all work, treatment, procedures, and medical decision making performed by me. Departure Information Dispostion Home / Self-Care Prescriptions Ondansetron Hcl (ZOFRAN) 4 Mg Tab 4 MG PO Q8H Y for Nausea, #10 TAB Prov: Cuba Cole, D.O. 03/10/16 Hydrocodon/Acetaminophen 5MG/300MG (VICODIN (5MG/300MG)) 1 Tab Tab 1-2 TAB PO Q6H Y for Pain, #14 TAB Prov: Cuba Cole, D.O. 03/10/16 Referrals No Doctor, Assigned (PCP) Forms HOME CARE DOCUMENTATION FORM, IMPORTANT VISIT INFORMATION Patient Instructions My [facility] Additional Instructions [facility] week with an appointment with Dr. Rizzo. Avoid fatty foods, use Vicodin 1-2 tabs every 6 hours as needed for severe pain. School Instructions Return To School: 1 day (please excuse from any class on 03/10/2016) Problem Qualifiers
[2016-03-10] MEDS ORDERED: ONDANSETRON INJ 2 MG/ML 2 ML VIAL IV STA (11:23)
[2016-03-10] MEDS ORDERED: HYDROmorphone INJ 0.5 MG/0.5 ML SYR IV PRN (11:30)
[2016-03-10 11:32] LABS: BASO % 0.2 %; BASO ABS # 0.01 K/uL (0-0.2); COMPLETE YES; EOS % 1.2 %; IG% 0.4 %; LYMPH % 41.5 %; LYMPH ABS # 2.02 K/uL (1.2-3.4); MEAN CELL VOLUME 85.1 fL (80-100); MEAN CORPUSCULAR HEMOGLOBIN 29.9 pg (25-34); MEAN CORPUSCULAR HGB CONC 35.1 g/dl (32-36); MEAN PLATELET VOLUME 11.2 fL (7.4-10.4); MONO % 9.7 %; PLATELET COUNT 219 K/uL (130-400); RED BLOOD COUNT 5.05 M/uL (4.2-5.4); WHITE BLOOD COUNT 4.87 K/uL (4.8-10.8)
[2016-03-10 11:42] LABS: BUN/CREATININE RATIO 7.7 (10-20); CALCIUM 9.3 mg/dl (8.5-10.1); CREATININE 0.91 mg/dl (0.60-1.20); POTASSIUM 3.6 mmol/L (3.5-5.1)
--- NOTE | 2016-03-10 12:12 | DIAGNOSTIC IMAGING REPORT ---
CHEST 2 VIEWS ROUTINE CLINICAL HISTORY: Abdominal pain, nausea and vomiting. COMPARISON STUDY: No previous studies for comparison. FINDINGS: Lung volumes are normal. There is no pneumothorax or pleural effusion. There is a pectus excavatum deformity with obscuration of the right heart border. Cardiac size is normal. Mediastinal contours are normal. There is no evidence of pulmonary edema. There is no lucency under the hemidiaphragms to suggest pneumoperitoneum. IMPRESSION: No acute cardiopulmonary findings. Electronically signed by: Waldemar Bauman M.D. 03/10/2016 12:11 PM Dictated Date/Time: 03/10/2016 12:08 PM
--- NOTE | 2016-03-10 13:06 | DIAGNOSTIC IMAGING REPORT ---
ABDOMINAL ULTRASOUND, RIGHT UPPER QUADRANT HISTORY: Abdominal pain.. COMPARISON: CT of the abdomen and pelvis May 06, 2014 and right upper quadrant ultrasound February 16, 2016. FINDINGS: This study is compromised by suboptimal penetration. Liver is sonographically normal. There is no biliary ductal dilatation. There is no gallbladder wall thickening. A 4 mm nonmobile abnormality within the gallbladder may reflect a polyp or less likely a stone. The pancreatic body is normal. The head and tail are partially obscured by overlying bowel gas. There is no right hydronephrosis. IMPRESSION: 1. 4 mm nonmobile abnormality within the gallbladder which could reflect a small polyp or less likely calculus. No evidence of acute cholecystitis. 2. No biliary ductal dilatation. Electronically signed by: Waldemar Bauman M.D. 03/10/2016 1:05 PM Dictated Date/Time: 03/10/2016 1:03 PM
[2016-03-10] MEDS ORDERED: OPTIRAY 320 IV PRN ×2 (14:15)
--- NOTE | 2016-03-10 14:48 | DIAGNOSTIC IMAGING REPORT ---
CT ANGIOGRAM OF THE CHEST CLINICAL HISTORY: Abnormal EKG. Nausea. Elevated d-dimer. COMPARISON STUDY: Chest radiograph dated 03/10/2016. TECHNIQUE: Following the IV administration of 92 cc of Optiray 320, CT angiogram of the chest was performed from the upper abdomen to the thoracic inlet utilizing the pulmonary embolus protocol. Images are reviewed in the axial, sagittal, and coronal planes. 3-D MIPS images are created and assessed. IV contrast was administered without complication. CT DOSE: 645.70 mGy.cm FINDINGS: Thyroid: Imaged portions of the thyroid gland are normal in size and attenuation. Thoracic aorta: The thoracic aorta is normal in caliber and demonstrates 4-vessel variant arch anatomy. No dissection is seen. Pulmonary vasculature: The pulmonary trunk is normal in caliber. There are no filling defects identified in main, lobar, or segmental pulmonary branches to suggest pulmonary embolus. Heart: The heart is normal in size and configuration, and without pericardial effusion. Lungs and pleural spaces: The lungs and pleural spaces are clear. The trachea and central airways are patent. Mediastinum: There is no mediastinal lymphadenopathy. Fifi: Clear. Axillae: There is no axillary lymphadenopathy. Upper abdomen: The spleen is mildly enlarged, measuring 13.3 cm in length. Hepatic steatosis is suspected. Partially visualized upper abdominal viscera is otherwise within normal limits. Skeletal structures: No lytic or blastic bony lesions are seen. A mild pectus deformity is noted. IMPRESSION: 1. There is no evidence of pulmonary embolus in the main, lobar, or segmental pulmonary arteries. 2. The lungs are clear. 3. Suspect hepatic steatosis. Mild splenomegaly. Electronically signed by: Jin Carranza M.D. 03/10/2016 2:47 PM Dictated Date/Time: 03/10/2016 2:42 PM
[2016-03-10 15:26] VITALS: BP 116/67; PULSE 87; O2SAT 96
[2016-03-10 15:27] LABS: URINE APPEARANCE CLEAR (CLEAR); URINE BILIRUBIN NEG (NEG); URINE COLOR YELLOW; URINE EPITHELIAL CELL AUTO >30 /lpf (0-5); URINE NITRITE NEG (NEG); URINE PH 5.5 (4.5-7.5); URINE SPECIFIC GRAVITY > 1.045 (1.000-1.030); UROBILINOGEN NEG (NEG)
[2016-03-10] MEDS ORDERED: HYDR-3419 PO (15:29)
[2016-03-10 15:37] LABS: MANUAL MICROSCOPIC REQUIRED? NO; REVIEW REQ? YES
[2016-03-10] MEDS ORDERED: ONDA4TAB46 PO (15:45)
== END 2016-03-10 16:02 | disposition home or self-care (01) ==
LOC: C.EDB 10:39
DX: K80.20 Calculus of gallbladder without cholecystitis without obstruction (principal); R94.31 Abnormal electrocardiogram [ECG] [EKG]

== ENCOUNTER 2016-08-15 11:12 | Emergency (ER) | payer OTHER ==
[~2016-08-15] VITALS: Ht 160 cm; Wt 108.3 kg
[~2016-08-15 11:12] MED LIST changes: +HYDR-3419 PO; +ONDA4TAB46 PO; -OXYC1TAB3 PO
[2016-08-15 11:18] VITALS: TEMP 37.4; Ht 160 cm; Wt 108.3 kg
[2016-08-15 12:23] LABS: BASO % 0.2 %; BASO ABS # 0.02 K/uL (0-0.2); COMPLETE YES; EOS % 0.2 %; HEMATOCRIT 42.7 % (37-47); IG% 0.2 %; LYMPH % 7.9 %; MEAN CELL VOLUME 86.3 fL (80-100); MEAN CORPUSCULAR HEMOGLOBIN 29.3 pg (25-34); MEAN PLATELET VOLUME 11.3 fL (7.4-10.4); MONO % 6.2 %; NEUT % 85.3 %; PLATELET COUNT 197 K/uL (130-400); RED BLOOD COUNT 4.95 M/uL (4.2-5.4)
[2016-08-15 12:37] LABS: BUN/CREATININE RATIO 6.4 (10-20); CALCIUM 9.5 mg/dl (8.5-10.1); CREATININE 0.95 mg/dl (0.60-1.20); POTASSIUM 3.8 mmol/L (3.5-5.1)
[2016-08-15] MEDS ORDERED: ONDANSETRON INJ 2 MG/ML 2 ML VIAL IV STA (12:54)
[2016-08-15] MEDS ORDERED: SODIUM CHLORIDE 0.9% 1000ML 1,000 ML IV STA (12:54)
[2016-08-15] MEDS ORDERED: MoRPHine SULFATE 4 MG/ML 1 ML CARP\\VIAL IV STA (12:54)
[2016-08-15 13:00] LABS: URINE APPEARANCE CLEAR (CLEAR); URINE BILIRUBIN NEG (NEG); URINE COLOR YELLOW; URINE EPITHELIAL CELL AUTO >30 /lpf (0-5); URINE NITRITE NEG (NEG); URINE PH 5.5 (4.5-7.5); URINE SPECIFIC GRAVITY 1.007 (1.000-1.030); UROBILINOGEN NEG (NEG); ZZUR CULT IF INDIC CLEAN CATCH YES
[2016-08-15 13:06] LABS: MANUAL MICROSCOPIC REQUIRED? NO; REVIEW REQ? NO
[2016-08-15] MEDS ORDERED: MoRPHine SULFATE 2 MG/ML CARP ONE (13:17)
--- NOTE | 2016-08-15 13:49 | DIAGNOSTIC IMAGING REPORT ---
ULTRASOUND RIGHT UPPER QUADRANT ABDOMEN CLINICAL HISTORY: Right upper quadrant abdominal pain. COMPARISON STUDY: Abdominal ultrasound dated 03/10/2016. Abdominal CT dated 05/06/2014. TECHNIQUE: Real-time, grayscale, and color flow sonography of the right upper quadrant of the abdomen was performed. Images are reviewed in the transverse and longitudinal planes. FINDINGS: Liver: The liver is mildly enlarged measuring over 18 cm in length. The liver is normal in contour and echotexture. There is no intrahepatic biliary ductal dilatation. The main portal vein is patent. Gallbladder: A 4 mm gallbladder polyp is incidentally noted and unchanged. The gallbladder is otherwise normal in appearance. No gallstones are identified. There is no gallbladder wall thickening or pericholecystic fluid. A sonographic Chase's sign is reportedly absent. The common bile duct measures up to 0.4 cm in diameter. Pancreas: Visualized portions of the pancreatic head are normal as imaged. The majority of the pancreas was not visualized. Right kidney: Survey images of the right kidney demonstrate normal size and echotexture. There is no hydronephrosis. Ascites: None. IMPRESSION: No acute sonographic abnormality is identified in the right upper quadrant. No gallstones are seen. Electronically signed by: Jin Carranza M.D. 08/15/2016 1:47 PM Dictated Date/Time: 08/15/2016 1:46 PM
[2016-08-15] MEDS ORDERED: OPTIRAY 320 IV PRN (14:15)
[2016-08-15 16:12] VITALS: PULSE 111; O2SAT 99
--- NOTE | 2016-08-15 17:28 | DIAGNOSTIC IMAGING REPORT ---
CT SCAN OF THE ABDOMEN AND PELVIS WITH IV CONTRAST CLINICAL HISTORY: Right-sided abdominal pain. Fever. COMPARISON STUDY: Abdominal CT dated 05/06/2014. Abdominal ultrasound dated 08/15/2016. TECHNIQUE: Following the IV administration of 114 cc of Optiray 320, CT scan of the abdomen and pelvis is performed from the lung bases to the proximal femora. Images are reviewed in the axial, sagittal, and coronal planes. IV contrast was administered without complication. Automated dose control exposure was utilized. CT DOSE: 1163.17 mGy.cm FINDINGS: Lung bases: The heart is normal in size and without pericardial effusion. The lung bases are clear noting dependent atelectasis. Liver: The contrast-enhanced liver is enlarged, measuring 20.5 cm in length. The liver demonstrates diffusely diminished attenuation consistent with hepatic steatosis. Fatty sparing is seen adjacent to gallbladder fossa. There is no intrahepatic biliary ductal dilatation. The hepatic veins and portal veins are patent. Gallbladder: Unremarkable. Spleen: The spleen is enlarged measuring 14.3 cm in length. Pancreas: Unremarkable. Adrenal glands: Unremarkable. Kidneys: The contrast enhanced kidneys are normal in size and without hydronephrosis. The kidneys enhance symmetrically. Abdominal vasculature: The abdominal aorta is normal in course and caliber. Bowel: The small bowel and colon are normal in course and caliber. The appendix is well-visualized and normal. Peritoneum: There is no intraperitoneal free air or abdominal ascites. There is a fat-containing umbilical hernia. Lymphadenopathy: Prominent mesenteric lymph nodes in the right lower quadrant measure up to 10 mm short axis. Pelvic viscera: The bladder, uterus, and adnexa are normal as visualized. There are bilateral ovarian follicles. Skeletal structures: No lytic or blastic lesions are seen. There is a hemitransitional right-sided lumbosacral segment. IMPRESSION: 1. The appendix is well-visualized and normal. 2. Mildly enlarged mesenteric lymph nodes are identified in the right lower quadrant. These are nonspecific and could be related to mesenteric adenitis or a nonspecific enteritis. Clinical correlation will be required. 3. Hepatomegaly and hepatic steatosis. 4. Splenomegaly. Electronically signed by: Jin Carranza M.D. 08/15/2016 5:27 PM Dictated Date/Time: 08/15/2016 5:21 PM
[2016-08-15 17:29] VITALS: BP 100/57
[2016-08-15] MEDS ORDERED: AZITTAB PO (17:50)
--- NOTE | 2016-08-15 18:20 | EMERGENCY ROOM VISIT NOTE ---
History Report prepared by Rosanna: Ever Pagan Under the Supervision of: Dr. Donnie Flannery M.D. First contact with patient: 12:44 Chief Complaint: ABDOMINAL PAIN Stated Complaint: FEVER, RT SIDE ABDOMINAL PAIN, DIZZINESS Nursing Triage Summary: fever and abd pain greater than a week, seen in [facility]. cont to have abd pain and fever. has been taking tylenol History of Present Illness The patient is a 20 year old female who presents to the Emergency Room with complaints of persistent right upper quadrant abdominal pain that started a week ago. She says that the pain wraps around into her back. The patient states that she has had episodes of the same pain for a few years. She says that the episodes occur randomly, but when the episodes occur, the pain is constant. The patient describes the pain as sharp, and worse after eating. She has been having green/yellow diarrhea as well. The patient has had a fever that was up to 103 this morning. She says that she started having sinus congestion this morning, and she thinks that she may have a sinus infection. The discharge is green and yellow. The patient was in [place] when the pain came on last week. She went to a hospital there, but they were not able to do much for her as the hospital was limited. She was given Omeprazole and Motilium, but she has not taken them. The patient has had ultrasounds of her gallbladder in the past. She denies any urinary symptoms or cough. The patient has not had any recent sick contacts. Source of History: patient Onset: A week ago Position: abdomen (RUQ) Quality: sharp Timing: other (persistent) Modifying Factors (Worsening): eating Associated Symptoms: + fevers, + back pain, + diarrhea, No cough, No urinary symptoms Note: Associated symptoms: Sinus congestions started this morning. Review of Systems See HPI for pertinent positives & negatives. A total of 10 systems reviewed and were otherwise negative. Past Medical & Surgical Medical Problems: (1) Bronchitis (2) PNA (pneumonia) (3) RUQ abdominal pain Surgical Problems: (1) No pertinent past surgical history Family History Cancer FHx: gallbladder disease Heart disease Hypertension Kidney disease Lung disease Seizures Social History Smoking Status: Never Smoker Alcohol Use: none Marital Status: single Housing Status: lives with family Occupation Status: student Current/Historical Medications Scheduled Azithromycin (Zithromax Z-Sunny), 0 PO UD Buspirone Hcl (Buspar), Unknown Dose PO HS Fluoxetine (Prozac), 40 MG PO HS Allergies Coded Allergies: Cetirizine (Unverified Allergy, Unknown, "OUT OF IT". , 08/15/16) Penicillins (Verified Allergy, Unknown, ?, 08/15/16) Physical Exam Vital Signs Date Time Temp Pulse Resp B/P (MAP) Pulse Ox O2 Delivery O2 Flow Rate FiO2 08/15/16 17:29 100/57 08/15/16 16:12 111 20 99 08/15/16 16:11 112 08/15/16 16:04 113 21 97/54 98 Room Air 08/15/16 16:04 08/15/16 14:33 107 17 108/65 98 08/15/16 12:48 123 18 112/67 97 08/15/16 11:18 37.4 120 18 122/65 97 Room Air Physical Exam Constitutional: Vital signs reviewed. Eyes: Pupils are equal round reactive to light. Conjunctiva are noninjected. ENT: Pharynx is clear without erythema or exudate. Mucous membranes are moist. Mild maxillary sinus tenderness. Inflammation of the nasal turbinates. Neck supple without meningeal signs. Respiratory: Clear to auscultation bilaterally. Breath sounds are equal bilaterally. Cardiovascular: Tachycardic.. No rubs or gallops. GI: Soft, nondistended. Right upper quadrant tenderness, no Chase's sign, no CVA tenderness. Bowel sounds are present. Musculoskeletal: No peripheral edema. No lower extremity tenderness. Integumentary: No cyanosis. Neurological: The patient is awake and alert. No focal deficits. Psychiatric: Normal affect. Medical Decision & Procedures ER Provider Diagnostic Interpretation: Radiology results as stated below per my review and the radiologist's interpretation: ULTRASOUND RIGHT UPPER QUADRANT ABDOMEN CLINICAL HISTORY: Right upper quadrant abdominal pain. COMPARISON STUDY: Abdominal ultrasound dated 03/10/2016. Abdominal CT dated 05/06/2014. TECHNIQUE: Real-time, grayscale, and color flow sonography of the right upper quadrant of the abdomen was performed. Images are reviewed in the transverse and longitudinal planes. FINDINGS: Liver: The liver is mildly enlarged measuring over 18 cm in length. The liver is normal in contour and echotexture. There is no intrahepatic biliary ductal dilatation. The main portal vein is patent. Gallbladder: A 4 mm gallbladder polyp is incidentally noted and unchanged. The gallbladder is otherwise normal in appearance. No gallstones are identified. There is no gallbladder wall thickening or pericholecystic fluid. A sonographic Chase's sign is reportedly absent. The common bile duct measures up to 0.4 cm in diameter. Pancreas: Visualized portions of the pancreatic head are normal as imaged. The majority of the pancreas was not visualized. Right kidney: Survey images of the right kidney demonstrate normal size and echotexture. There is no hydronephrosis. Ascites: None. IMPRESSION: No acute sonographic abnormality is identified in the right upper quadrant. No gallstones are seen. Electronically signed by: Jin Carranza M.D. 08/15/2016 1:47 PM Dictated Date/Time: 08/15/2016 1:[address] SCAN OF THE ABDOMEN AND PELVIS WITH IV CONTRAST CLINICAL HISTORY: Right-sided abdominal pain. Fever. COMPARISON STUDY: Abdominal CT dated 05/06/2014. Abdominal ultrasound dated 08/15/2016. TECHNIQUE: Following the IV administration of 114 cc of Optiray 320, CT scan of the abdomen and pelvis is performed from the lung bases to the proximal femora. Images are reviewed in the axial, sagittal, and coronal planes. IV contrast was administered without complication. Automated dose control exposure was utilized. CT DOSE: 1163.17 mGy.cm FINDINGS: Lung bases: The heart is normal in size and without pericardial effusion. The lung bases are clear noting dependent atelectasis. Liver: The contrast-enhanced liver is enlarged, measuring 20.5 cm in length. The liver demonstrates diffusely diminished attenuation consistent with hepatic steatosis. Fatty sparing is seen adjacent to gallbladder fossa. There is no intrahepatic biliary ductal dilatation. The hepatic veins and portal veins are patent. Gallbladder: Unremarkable. Spleen: The spleen is enlarged measuring 14.3 cm in length. Pancreas: Unremarkable. Adrenal glands: Unremarkable. Kidneys: The contrast enhanced kidneys are normal in size and without hydronephrosis. The kidneys enhance symmetrically. Abdominal vasculature: The abdominal aorta is normal in course and caliber. Bowel: The small bowel and colon are normal in course and caliber. The appendix is well-visualized and normal. Peritoneum: There is no intraperitoneal free air or abdominal ascites. There is a fat-containing umbilical hernia. Lymphadenopathy: Prominent mesenteric lymph nodes in the right lower quadrant measure up to 10 mm short axis. Pelvic viscera: The bladder, uterus, and adnexa are normal as visualized. There are bilateral ovarian follicles. Skeletal structures: No lytic or blastic lesions are seen. There is a hemitransitional right-sided lumbosacral segment. IMPRESSION: 1. The appendix is well-visualized and normal. 2. Mildly enlarged mesenteric lymph nodes are identified in the right lower quadrant. These are nonspecific and could be related to mesenteric adenitis or a nonspecific enteritis. Clinical correlation will be required. 3. Hepatomegaly and hepatic steatosis. 4. Splenomegaly. Electronically signed by: Jin Carranza M.D. 08/15/2016 5:27 PM Dictated Date/Time: 08/15/2016 5:21 PM Laboratory Results 08/15/16 12:00 Red Blood Count 4.95, Mean Corpuscular Volume 86.3, Mean Corpuscular Hemoglobin 29.3, Mean Corpuscular Hemoglobin Concent 34.0, Mean Platelet Volume 11.3, Neutrophils (%) (Auto) 85.3, Lymphocytes (%) (Auto) 7.9, Monocytes (%) (Auto) 6.2, Eosinophils (%) (Auto) 0.2, Basophils (%) (Auto) 0.2, Neutrophils # (Auto) 10.83, Lymphocytes # (Auto) 1.00, Monocytes # (Auto) 0.79, Eosinophils # (Auto) 0.03, Basophils # (Auto) 0.02 08/15/16 12:00 Test 08/15/16 12:00 08/15/16 12:45 White Blood Count 12.70 K/uL (4.8-10.8) Red Blood Count 4.95 M/uL (4.2-5.4) Hemoglobin 14.5 g/dL (12.0-16.0) Hematocrit 42.7 % (37-47) Mean Corpuscular Volume 86.3 fL (80-100) Mean Corpuscular Hemoglobin 29.3 pg (25-34) Mean Corpuscular Hemoglobin Concent 34.0 g/dl (32-36) Platelet Count 197 K/uL (130-400) Mean Platelet Volume 11.3 fL (7.4-10.4) Neutrophils (%) (Auto) 85.3 % Lymphocytes (%) (Auto) 7.9 % Monocytes (%) (Auto) 6.2 % Eosinophils (%) (Auto) 0.2 % Basophils (%) (Auto) 0.2 % Neutrophils # (Auto) 10.83 K/uL (1.4-6.5) Lymphocytes # (Auto) 1.00 K/uL (1.2-3.4) Monocytes # (Auto) 0.79 K/uL (0.11-0.59) Eosinophils # (Auto) 0.03 K/uL (0-0.5) Basophils # (Auto) 0.02 K/uL (0-0.2) RDW Standard Deviation 40.4 fL (36.4-46.3) RDW Coefficient of Variation 12.7 % (11.5-14.5) Immature Granulocyte % (Auto) 0.2 % Immature Granulocyte # (Auto) 0.03 K/uL (0.00-0.02) Anion Gap 9.0 mmol/L (3-11) Est Creatinine Clear Calc Drug Dose 111.5 ml/min Estimated GFR () 99.9 Estimated GFR (Non- 86.2 BUN/Creatinine Ratio 6.4 (10-20) Calcium Level 9.5 mg/dl (8.5-10.1) Total Bilirubin 0.6 mg/dl (0.2-1) Aspartate Amino Transf (AST/SGOT) 24 U/L (15-37) Alanine Aminotransferase (ALT/SGPT) 32 U/L (12-78) Alkaline Phosphatase 84 U/L (45-117) Total Protein 8.0 gm/dl (6.4-8.2) Albumin 4.0 gm/dl (3.4-5.0) Globulin 4.0 gm/dl (2.5-4.0) Albumin/Globulin Ratio 1.0 (0.9-2) Lipase 128 U/L (73-393) Urine Color YELLOW Urine Appearance CLEAR (CLEAR) Urine pH 5.5 (4.5-7.5) Urine Specific [place] 1.007 (1.000-1.030) Urine Protein NEG (NEG) Urine Glucose (UA) NEG (NEG) Urine Ketones NEG (NEG) Urine Occult Blood NEG (NEG) Urine Nitrite NEG (NEG) Urine Bilirubin NEG (NEG) Urine Urobilinogen NEG (NEG) Urine Leukocyte Esterase SMALL (NEG) Urine WBC (Auto) 5-10 /hpf (0-5) Urine RBC (Auto) 0-4 /hpf (0-4) Urine Hyaline Casts (Auto) 1-5 /lpf (0-5) Urine Epithelial Cells (Auto) >30 /lpf (0-5) Urine Bacteria (Auto) 1+ (NEG) Urine Test NEG (NEG) Laboratory results as reviewed by me. Medications Administered Medications (Trade) Dose Ordered Sig/Yadi Route Start Time Stop Time Status Last Admin Dose Admin Sodium Chloride 1,000 ml @ 999 mls/hr Q1H1M STAT IV 08/15/16 12:54 08/15/16 13:54 DC 08/15/16 12:54 999 MLS/HR Morphine Sulfate (MoRPHine SULFATE INJ) 6 mg NOW STAT IV 08/15/16 12:54 08/15/16 12:55 DC 08/15/16 13:20 4 MG Ondansetron HCl (Zofran Inj) 4 mg NOW STAT IV 08/15/16 12:54 08/15/16 12:55 DC 08/15/16 13:20 4 MG Morphine Sulfate (MoRPHine SULFATE INJ) 2 mg STK-MED ONCE .ROUTE 08/15/16 13:17 08/15/16 13:18 DC 08/15/16 13:20 2 MG ED Course 1247: The patient was evaluated in room A3. A complete history and physical exam was performed. 1254: Ordered Zofran Inj 4 mg IV, Morphine Sulfate Inj 6 mg IV, NSS 1000 ml @ 999 mls/hr IV. 1412: I talked to the patient about the test results. She says that her mother has a history of Crohn's disease. 1733: I reevaluated the patient and discussed the test results with her. The patient verbally expressed understanding and agreement of the treatment plan. The patient will be discharged. 1749: I reevaluated the patient and she is requesting something for her sinus symptoms. Medical Decision This is a 20-year-old female presents with diarrhea, abdominal pain, fever or sinus symptoms. Differential diagnosis includes cholelithiasis, cholecystitis, peptic ulcer disease, inflammatory bowel disease, irritable bowel syndrome, colitis, sinusitis, dehydration. I did perform a limited focused review of portions of the patient's old chart on the electronic medical record. The patient has had no recent pertinent visits to this hospital. Blood Pressure Screening: Patient was found to have normal blood pressure on screening and does not require follow-up. Medication Reconciliation: I attest that I have personally reviewed the patient' s current medication list. I did evaluate the patient as noted above. IV access was established. I did treat patient with normal saline IV. She was also given Zofran and morphine IV. I did order and personally review the patient's urinalysis as described above. It is equivocal. She denies any urinary symptoms. The urine culture was sent. I did order and review the patient's blood work as noted in the electronic medical record. Her white blood cell count slightly elevated. She does have normal LFTs and lipase. I did order a right upper quadrant ultrasound which showed no acute abnormality. After discussion with the patient, I did order a CT of the abdomen and pelvis. I did review the images myself as well as the radiology report as described above. The patient has some lymphadenopathy with hepatosplenomegaly. I did discuss the test results with the patient. She is better at this time. She was given a prescription for Zithromax for her sinus symptoms. She was advised follow up with a regular physician as well as a GI doctor for further evaluation of her symptoms as well as her CT findings. She was discharged in good condition. Impression Primary Impression: Enteritis Additional Impressions: Abdominal lymphadenopathy Hepatosplenomegaly Dehydration Sinusitis Scribe Attestation The scribe's documentation has been prepared under my direct and personally reviewed by me in its entirety. I confirm that the note above accurately reflects all work, treatment, procedures, and medical decision making performed by me. Departure Information Dispostion Home / Self-Care Prescriptions Azithromycin (ZITHROMAX Z-SUNNY) 250 Mg Tab 0 PO UD, #1 PKT Prov: Donnie Flannery M.D. 08/15/16 Referrals Sumi. Dumont PA-C (PCP) Patient Instructions My [facility] Additional Instructions You have been examined and treated today on an emergency basis only. This is not a substitute for, or an effort to provide, complete comprehensive medical care. It is impossible to recognize and treat all injuries or illnesses in a single emergency department visit. It is therefore important that you follow up closely with your physician and/or a GI specialist. Call as soon as possible for an appointment. Return for worsening symptoms or if you develop fever, vomiting, or any other concerning symptoms. Your CT scan showed abnormal lymph nodes and enlargement of your spleen and liver today. Talk to your doctor or a GI specialist regarding these findings. Problem Qualifiers Additional Impressions: Sinusitis Sinusitis location: maxillary Chronicity: acute Recurrence: not specified as recurrent Qualified Codes: J01.00 - Acute maxillary sinusitis, unspecified
== END 2016-08-15 17:55 | disposition home or self-care (01) ==
LOC: C.EDB 11:14 → C.EDA 17:55
DX: K52.9 Noninfective gastroenteritis and colitis, unspecified (principal); R59.0 Localized enlarged lymph nodes; R16.2 Hepatomegaly with splenomegaly, not elsewhere classified; E86.0 Dehydration; J01.00 Acute maxillary sinusitis, unspecified; Z87.01 Personal history of pneumonia (recurrent); Z87.09 Personal history of other diseases of the respiratory system; Z82.49 Family history of ischemic heart disease and other diseases of the circulatory system; Z82.0 Family history of epilepsy and other diseases of the nervous system